=== PATIENT | male | born 1980 | race African-American/Black ===

== ENCOUNTER 2020-06-03 10:55 | Emergency (ER) | payer OTHER ==
[2020-06-03] MEDS ORDERED: Boostrix 0.5 ML (Tdap) VIAL ONE (11:29)
[2020-06-03] MEDS ORDERED: HYDROcodone/Acetaminophen 10/325 mg Tablet ONE (12:29)
== END 2020-06-03 15:32 | disposition home or self-care (01) ==
LOC: ERS 10:55
DX: S60.415A Abrasion of left ring finger, initial encounter (principal); M25.462 Effusion, left knee; I10 Essential (primary) hypertension; F17.210 Nicotine dependence, cigarettes, uncomplicated; V86.96XA Unspecified occupant of dirt bike or motor/cross bike injured in nontraffic accident, initial encounter; Y92.410 Unspecified street and highway as the place of occurrence of the external cause; Z23 Encounter for immunization
CPT/HCPCS: 90471; 90715

== ENCOUNTER 2020-06-10 08:38 | Emergency (ER) | payer SELFPAY ==
[2020-06-10] MEDS ORDERED: Ibuprofen 800 MG TAB ONE (10:02)
== END 2020-06-10 09:45 | disposition home or self-care (01) ==
LOC: ERS 08:38
DX: S83.92XA Sprain of unspecified site of left knee, initial encounter (principal); I10 Essential (primary) hypertension; F17.210 Nicotine dependence, cigarettes, uncomplicated; Z79.899 Other long term (current) drug therapy; W19.XXXA Unspecified fall, initial encounter
CPT/HCPCS: 99283